=== PATIENT | male | born 1990 | race Caucasian/White ===

== ENCOUNTER 2023-05-04 17:15 | Emergency (ER) | payer OTHER, MEDICAID, SELFPAY ==
[2023-05-04] VITALS (9 sets, daily range): BP systolic 131–159; BP diastolic 78–87; PULSE 70–94; RESP 16; TEMP 36.6; O2SAT 96–100; BMI 22.4
--- NOTE | 2023-05-04 17:35 | DI.US.S_ITS ---
PROCEDURE: US ABDOMEN LIMITED INDICATIONS: RUQ pain TECHNIQUE: Real-time scanning was performed of the abdominal and retroperitoneal organs, with image documentation. COMPARISON: None. FINDINGS: Liver: Liver measures 15.3 cm. Echogenic focus in the right lobe of the liver measuring 2.4 x 1.7 x 1.6 cm. Gallbladder: Nondilated. No stones or sludge. Comet tail artifact consistent with adenomyomatosis. Normal gallbladder wall thickness. No pericholecystic fluid. Negative sonographic Licea's sign. Biliary ducts: Intrahepatic bile ducts are non-dilated. Extrahepatic bile duct caliber measures 7 mm. Normal is 6-7 mm or less in diameter, or 10 mm or less post-cholecystectomy. Pancreas: Visualized portions of the pancreas are sonographically normal. IMPRESSIO: 1. No acute cholecystitis. No gallstones. 2. Gallbladder wall adenomyomatosis. 3. Echogenic focus in the right lobe of the liver measuring 2.4 cm. This could represent focal fatty infiltration given its location or a benign hemangioma. This could be definitively characterized with MRI with IV contrast. Dictated by: Robinson Duran M.D. on 05/04/2023 at 18:38 Approved by: Robinson Duran M.D. on 05/04/2023 at 18:44
[2023-05-04 18:02] LABS: Add Manual Diff / Slide Review NO; Basophils Absolute Auto 100 /uL (0-100); Eosinophils Absolute Auto 100 /uL (0-450); Eosinophils Percent Auto 1.3 % (2-4); Hematocrit 42.1 % (41-53); Hemoglobin 14.6 g/dL (13.5-17.5); Lymphocytes Absolute Auto 2000 /uL (1100-4500); Lymphocytes Percent Auto 22.6 % (25-40); Mean Corpuscular HGB Conc 34.6 % (30-36); Mean Corpuscular Hemoglobin 30.6 PG (26-34); Mean Corpuscular Volume 88.3 fL (80-100); Monocytes Absolute Auto 700 /uL (0-900); Monocytes Percent Auto 8.2 % (3-14); Neutrophils Absolute Auto 5900 /uL (1500-7000); Neutrophils Percent Auto 66.9 % (50-75); Platelet Count 426 X10^3/uL (150-400); Red Blood Cell Count 4.77 X10^6/uL (4.5-5.9); Red Cell Distribution Width 13.9 % (11.6-14.8); White Blood Cell Count 8.9 X10^3/uL (4.5-11.0)
[2023-05-04 18:08] LABS: Alanine Aminotransferase 20 IU/L (<50); Albumin 4.4 g/dL (3.5-5.0); Albumin Globulin Ratio 1.2 (1.0-2.8); Alkaline Phosphatase 78 U/L (38-126); Aspartate Aminotransferase 19 IU/L (17-59); BUN Creatinine Ratio 18.5 (6-22); Bilirubin Total 0.2 mg/dL (0.2-1.3); Blood Urea Nitrogen 12 mg/dL (9-20); Calcium 9.5 mg/dL (8.4-10.2); Carbon Dioxide 28 mmol/L (22-32); Chloride 100 mmol/L (98-107); Estimated Glomerular Filt Rate > 60 mL/min (>60); Globulin 3.6 g/dL (1.7-4.1); Glucose 89 mg/dL (70-100); HEMOLYSIS < 15 (0-50); Lipase 177 U/L (23-300); Potassium 3.7 mmol/L (3.4-5.1); Sodium 139 mmol/L (137-145)
--- NOTE | 2023-05-04 20:36 | ED_ITS ---
HPI - Abdominal Pain General Chief Complaint: Abdominal Pain Stated Complaint: Back and ABD pain. T-3 Time Seen by Provider: 05/04/23 20:25 Source: patient Mode of arrival: Ambulatory Limitations: no limitations History of Present Illness HPI narrative: This is a 33-year-old male with 3 days of right upper abdominal and back pain. Patient states has been intermittent but persistent today. He denies fevers or chills. He states it is painful to take a deep breath but does not feel short of breath denies pain in his upper chest. Denies any nausea or vomiting. States he is had normal bowel movements. No black or bloody stools. No dysuria urgency or frequency. Denies any low back pain or lower abdominal pain. Patient states no daily medications. No prior surgeries. No known drug allergies. He denies tobacco, alcohol or illicit. Accompanied by his girlfriend. Patient states he is not had similar symptoms in the past. Patient has not taken anything for pain today. Related Data Previous Rx's Medication Instructions Recorded meloxicam 7.5 mg tablet 7.5 mg PO BID PRN pain #10 tabs 05/04/23 Allergies Allergy/AdvReac Type Severity Reaction Status Date / Time No Known Drug Allergies Allergy Verified 05/04/23 17:20 Review of Systems Review of Systems ROS Unobtainable: All systems reviewed & are unremarkable except as noted in HPI and below Patient History Social History Smoking Status: Never smoker Smoking Status: Never smoker Substance Use Type: does not use Exam Narrative Exam Narrative: GENERAL: Alert and oriented x three, male in moderate distress. HEENT: Head normocephalic, atraumatic, EOMI, pupils reactive, face symmetric, moist mucous membranes NECK: Supple, full range of motion CARDIOVASCULAR: Regular rate and rhythm without murmurs, rubs or gallops. RESPIRATORY: Breath sounds equal bilaterally, no wheezes rales or rhonchi. No tachypnea, no accessory muscle use. ABDOMEN: Soft, positive right upper quadrant tenderness. Nondistended. Normoactive bowel sounds all 4 quadrants. No guarding or rebound, rigidity, no mass, no pulsatile mass or bruit. : No CVA tenderness EXTREMITIES: Normal range of motion, no clubbing or edema. Neurovascularly intact NEUROLOGICAL: Cranial nerves II through XII grossly intact. Moving all extremities SKIN: Warm, dry, no petechiae, no rashes or lesions. Initial Vital Signs Initial Vital Signs: Vital Signs Temperature 98 F 05/04/23 17:20 Pulse Rate 94 H 05/04/23 17:20 Respiratory Rate 16 05/04/23 17:20 Blood Pressure 159/78 H 05/04/23 17:20 Pulse Oximetry 99 05/04/23 17:20 Oxygen Delivery Method Room Air 05/04/23 17:20 Course Orders Ordered: Discontinued Medications Ketorolac Tromethamine (Ketorolac 30 Mg/Ml Vial) 15 mg IV NOW ONE Stop: 05/04/23 20:45 Last Admin: 05/04/23 21:08 Dose: 15 mg Documented By: CHRIS Ondansetron HCl (Ondansetron 4 Mg Odt) 4 mg PO NOW PRN PRN Reason: Nausea And Vomiting Ondansetron HCl (Ondansetron 4 Mg/2 Ml Inj) 4 mg IV NOW PRN PRN Reason: Nausea And Vomiting Vital Signs Vital signs: Vital Signs - 8 hr 05/04/23 20:00 05/04/23 20:30 05/04/23 21:00 Pulse Rate 70 87 86 Blood Pressure Pulse Oximetry 100 100 100 05/04/23 21:11 05/04/23 21:11 05/04/23 21:30 Pulse Rate 92 H Blood Pressure 134/87 131/82 Pulse Oximetry 100 05/04/23 21:30 Pulse Rate 88 Blood Pressure Pulse Oximetry 100 MDM - Abdominal Pain Lab Data 05/04/23 17:52 05/04/23 17:52 Labs: Lab Results 05/04/23 Range/Units 17:52 WBC 8.9 (4.5-11.0) X10^3/uL RBC 4.77 (4.5-5.9) X10^6/uL Hgb 14.6 (13.5-17.5) g/dL Hct 42.1 (41-53) % MCV 88.3 (80-100) fL MCH 30.6 (26-34) PG MCHC 34.6 (30-36) % RDW 13.9 (11.6-14.8) % Plt Count 426 H (150-400) X10^3/uL Neut % (Auto) 66.9 (50-75) % Lymph % (Auto) 22.6 L (25-40) % Owen % (Auto) 8.2 (3-14) % Eos % (Auto) 1.3 L (2-4) % Baso % (Auto) 1.0 (0-2) % Neut # (Auto) 5900 (0242-8750) /uL Lymph # (Auto) 2000 (1708-2062) /uL Owen # (Auto) 700 (0-900) /uL Eos # (Auto) 100 (0-450) /uL Baso # (Auto) 100 (0-100) /uL Sodium 139 (137-145) mmol/L Potassium 3.7 (3.4-5.1) mmol/L Chloride 100 (98-107) mmol/L Carbon Dioxide 28 (22-32) mmol/L BUN 12 (9-20) mg/dL Creatinine 0.65 L (0.66-1.25) mg/dL Estimated GFR > 60 (>60) mL/min BUN/Creatinine Ratio 18.5 (6-22) Glucose 89 (70-100) mg/dL Calcium 9.5 (8.4-10.2) mg/dL Total Bilirubin 0.2 (0.2-1.3) mg/dL AST 19 (17-59) IU/L ALT 20 (<50) IU/L Alkaline Phosphatase 78 (38-126) U/L Total Protein 8.0 (6.3-8.2) g/dL Albumin 4.4 (3.5-5.0) g/dL Globulin 3.6 (1.7-4.1) g/dL Albumin/Globulin Ratio 1.2 (1.0-2.8) Lipase 177 (23-300) U/L Point of care testing: Urine Dip Bedside Urine Glucose Negative Bedside Urine Bilirubin - Negative Bedside Urine Ketone - Negative Urine Specific [place] 1.015 Bedside Urine Occult Blood - Negative Bedside Urine pH 7.5 Bedside Urine Protein - Negative Bedside Urine Urobilinogen - Negative Bedside Urine Nitrite - Negative Bedside Urine Leukocytes - Negative Esterase Imaging Data US - abdomen: Radiologist's Impression: Close Abdomen Ultrasound (Signed) RogerRobinson - 05/04/[address] [address] Ultrasound Report Signed Patient: Xenia Vazquez MR#: [id number] : 1990 Acct:[id number] Age/Sex: 33 / M Date of Service: 05/04/23 Loc: ED Accession Number: [id number] Procedure: US abdomen limited Ordering Provider: Alexandr Oliveira MD PROCEDURE: US ABDOMEN LIMITED INDICATIONS: RUQ pain TECHNIQUE: Real-time scanning was performed of the abdominal and retroperitoneal organs, with image documentation. COMPARISON: None. FINDINGS: Liver: Liver measures 15.3 cm. Echogenic focus in the right lobe of the liver measuring 2.4 x 1.7 x 1.6 cm. Gallbladder: Nondilated. No stones or sludge. Comet tail artifact consistent with adenomyomatosis. Normal gallbladder wall thickness. No pericholecystic fluid. Negative sonographic Licea's sign. Biliary ducts: Intrahepatic bile ducts are non-dilated. Extrahepatic bile duct caliber measures 7 mm. Normal is 6-7 mm or less in diameter, or 10 mm or less post-cholecystectomy. Pancreas: Visualized portions of the pancreas are sonographically normal. IMPRESSIO: 1. No acute cholecystitis. No gallstones. 2. Gallbladder wall adenomyomatosis. 3. Echogenic focus in the right lobe of the liver measuring 2.4 cm. This could represent focal fatty infiltration given its location or a benign hemangioma. This could be definitively characterized with MRI with IV contrast. Dictated by: Robinson Duran M.D. on 05/04/2023 at 18:38 Approved by: Robinson Duran M.D. on 05/04/2023 at 18:44 [facility] Narrative Medical decision making narrative: 33-year-old male with 3 days of right upper quadrant pain radiating towards his back. No flank pain on examination but he is tender in the right upper quadrant. No fevers no nausea or vomiting no chest pain shortness of breath no other GI or urinary symptoms. Labs Show platelets of 426, normal hemoglobin and white count, lymphocytes are low at 22 no leftward shift. LFTs are appropriate, normal electrolytes, normal lipase. Point of care urine does not show any signs of infection, blood or other changes. Ultrasound shows gallbladder wall changes consistent with adenomyomatosis, there is also a possible hemangioma versus fatty infiltration of the right lobe of the liver. Patient does not have any fevers or changes concerning for abscess at this time. Discussed would have patient follow-up but felt appropriate for discharge home. Patient had not taken anything for pain today was given Toradol. Patient feels significantly improved afterwards. Reviewed his findings from today need for follow-up. All questions answered return precautions discussed. Discharge Plan Departure Patient Disposition: Home Clinical Impression: Adenomyomatosis of gallbladder, Lesion of liver Activity Restrictions/Additional Instructions: Follow-up for recheck with General surgery if your pain is persisting. Your imaging today shows adenomyomatosis of the gallbladder wall, this is typically a benign condition but can sometimes cause pain. There is also a small area in the right lobe of the liver could be some local fat or benign hemangioma follow-up with your physician or general surgery for further evaluation. Take pain medication as prescribed. Prescription printed. Please return for fevers new or worsening abdominal back or flank pain, persistent vomiting, black or bloody stools, lightheadedness or passing out, new chest pain or shortness of breath or other new or concerning changes. Prescriptions: New meloxicam 7.5 mg tablet 7.5 mg PO BID PRN (Reason: pain) Qty: 10 0RF Stand Alone Forms: Patient Portal/API
[2023-05-04] MEDS: KETOROLAC 30 MG/ML VIAL 15 MG IV (21:08)
== END 2023-05-04 21:47 | disposition home or self-care (01) ==
PROVIDERS: Emergency Medicine; Emergency Provider Emergency Medicine
DX: D13.5 Benign neoplasm of extrahepatic bile ducts (principal); K76.9 Liver disease, unspecified
CPT/HCPCS: 36415; 76705; 80053; 81003; 83690; 85025; 96374; 99284; J1885